=== PATIENT | male | born 1970 | race African-American/Black ===

== ENCOUNTER 2020-06-21 16:45 | Emergency (ER) | payer BC ==
--- OUTSIDE RECORDS SUMMARY | 2020-06-21 16:48 | XMS REPORT | Continuity of Care Document ---
:1970 Author Organization [facility] t Address [address] [place] [address] Care Team Providers Name Role Phone ISELA Attending Clinician Unavailable Torsten Monique Attending Clinician HELGA Attending Clinician Unavailable Problems Condition Condition Condition Status Onset Resolution Last Treating Co mments Source Name Details Category Date Date Treatment Clinician Date Morbid Problem Active 2019-02-02 Memor ia obesity 23:38:46 l (disorder) Morbid Herm santi obesity (disorder) Active Problem 02/02/2019 [facility] Group History of History of Problem Resolve [facility] Heart Heart d ity of problem problem [place] [facility] ans History of History of Problem Resolve [facility] hypertensi hypertensi d it y of on on [place] [facility] Rupture of Rupture of Problem Active U nivers left left ity of quadriceps quadriceps [place] tendon, tendon, Physici subsequent subsequent an s encounter encounter Left knee Left knee Problem Active Uni vers pain pain ity of [place] [facility] ans Arthritis Arthritis Problem Active Uni vers of left of left ity of knee due knee due [place] to other to other Physic i bacteria bacteria ans Allergies, Adverse Reactions, Alerts Allergy Allergy Status Severity Reaction(s) Onset Inactive Treating Comm ents Source Name Type Date Date Clinician No Known No Known Active Memori a Medicati Medicati l on on Jorge Bui s s Social History Smoking Status Start Date Stop Date Source Social History [facility] Medications Ordered Filled Start Stop Current Ordering Indication Dosage Frequency Signature Comments Components Source Medication Medication Date Date Medication? Clinician (SIG) Name Name [facility] Asp[facility] Asp[facility]in 2018-04 Yes IGNACIA TAKE 1 Univers Low Dose 81 Low Dose 81 0-29 ISELA TABLET BY ity of MG Oral MG Oral 00:00: M.D. MOUTH [place] Tablet Tablet 00 EVERY DAY Physic i Delayed Delayed ans Release Release Hydrochloro 2018-04 Yes 25 mg = 1 M emoria thiazide 25 0-10 tab, PO, l MG Oral 18:19: Daily, 0 Meliton n Tablet 00 Refill(s) lisinopril 2018-04 Yes 40 mg = 1 Me moria 40 mg oral 0-10 tab, PO, l tablet 18:19: Daily, 0 Jorge 00 Refill(s) NIFEdipine 2018-04 Yes 60 mg = 1 Me moria 60 mg oral 0-10 tab, PO, l tablet, 18:19: Daily Jorge extended 00 release cephalexin 2018-04 Yes 500 mg = 1 M emoria 500 mg oral 0-10 tab, PO, l tablet 16:52: QID, X 10 Meliton n 24 day, # 40 tab, 0 Refill(s), Pharmacy: [facility] #[id number] cephalexin 2018-04 No 500 mg = 1 M emoria 500 mg oral 0-10 tab, PO, l tablet 16:49: QID, X 10 Meliton n 00 day, # 40 tab, 0 Refill(s) Cyclobenzap Cyclobenzap 2018-04 Yes IGNACIA Q0.3333D TAKE 1 Univers rine HCl - rine HCl - 0-10 ISELA TABLET 3 ity of 10 MG Oral 10 MG Oral 00:00: M.D. TIMES [place] Tablet Tablet 00 DAILY. Physici ans Gabapentin Gabapentin 2018-04 Yes IGNACIA Q0.3333D TAKE 1 Univers 300 MG Oral 300 MG Oral 0-10 ISELA CAPSULE 3 ity of Capsule Capsule 00:00: M.D. TIMES [place] 00 DAILY. Physici ans Naproxen Naproxen 2018-04 Yes IGNACIA Q12H TAKE 1 Univers 500 MG Oral 500 MG Oral 0-10 ISELA TABLET ity of Tablet Tablet 00:00: M.D. EVERY 12 [place] 00 HOURS Physici DAILY. ans traMADol traMADol 2018-04 Yes IGNACIA TAKE 1 TO Univers HCl - 50 MG HCl - 50 MG 0-10 ISELA 2 TABLETS ity of Oral Tablet Oral Tablet 00:00: M.D. EVERY 4 TO [place] 00 6 HOURS Physici NEEDED FOR ans PAIN. Ondansetron Ondansetron 2018-04 Yes IGNACIA 1 Q12H TAKE 1 Univers HCl - 4 MG HCl - 4 MG 0-10 ISELA TABLET ity of Oral Tablet Oral Tablet 00:00: M.D. Every [place] 00 twelve Physici hours PRN ans nausea Aspirin 81 Aspirin 81 2018-04 Yes IGNACIA 1 QD TAKE 1 Univers 81 MG Oral 81 MG Oral 0-10 ISELA TABLET ity of Tablet Tablet 00:00: M.D. DAILY. [place] Delayed Delayed 00 Physici Release Release ans Aspirin 81 Aspirin 81 Yes IGNACIA 1 QD TAKE 1 Univers 81 MG Oral 81 MG Oral 5-17 ISELA TABLET ity of Tablet Tablet 00:00: M.D. DAILY. [place] Delayed Delayed 00 Physici Release Release ans Cyclobenzap Cyclobenzap Yes IGNACIA Q0.3333D TAKE 1 Univers rine HCl - rine HCl - 5-17 ISELA TABLET 3 ity of 10 MG Oral 10 MG Oral 00:00: M.D. TIMES [place] Tablet Tablet 00 DAILY. Physici ans Gabapentin Gabapentin Yes IGNACIA Q0.3333D TAKE 1 Univers 300 MG Oral 300 MG Oral 5-17 ISELA CAPSULE 3 ity of Capsule Capsule 00:00: M.D. TIMES [place] 00 DAILY. Physici ans Naproxen Naproxen Yes IGNACIA Q12H TAKE 1 Univers 500 MG Oral 500 MG Oral 5-17 ISELA TABLET ity of Tablet Tablet 00:00: M.D. EVERY 12 [place] 00 HOURS Physici DAILY. ans Ondansetron Ondansetron Yes IGNACIA 1 Q12H TAKE 1 Univers HCl - 4 MG HCl - 4 MG 5-17 ISELA TABLET ity of Oral Tablet Oral Tablet 00:00: M.D. Every [place] 00 twelve Physici hours PRN ans nausea Trezix Trezix Yes IGNACIA 2 Q6H TAKE 2 Univ ers 320.5-30-16 320.5-30-16 5-17 ISELA CAPSULE ity of MG Oral MG Oral 00:00: M.D. EVERY 6 [place] Capsule Capsule 00 HOURS Physici ans NIFEdipine NIFEdipine Yes Uni vers ER 60 MG ER 60 MG ity of Oral Tablet Oral Tablet [place] Extended Extended Physici Release 24 Release 24 ans Hour Hour hydroCHLORO hydroCHLORO Yes U nivers thiazide 25 thiazide 25 i ty of MG Oral MG Oral [place] Tablet Tablet Physici ans Lisinopril Lisinopril Yes Uni vers 40 MG Oral 40 MG Oral ity of Tablet Tablet [place] Phys[facility] ans Vital Signs Vital Name Observation Time Observation Value Comments Source Systolic (mm Hg) 2019-01-31 18:07:00 Tani kimberly Patel Diastolic (mm Hg) 2019-01-31 18:07:00 [facility] ry Patel Heart Rate 2019-01-31 18:07:00 [facility] Respitory Rate 2019-01-31 18:07:00 Earlene aiden Escalanteann Temperature Oral (F) 2019-01-31 18:07:00 97.9 F [facility] Height 2019-01-31 18:07:00 182.88 cm [facility] Weight 2019-01-31 18:07:00 [facility] BMI Calculated 2019-01-31 18:07:00 Earlene aiden Patel Height 2018-09-03 09:57:00 72 [in_us] [facility] Weight 2018-09-03 09:57:00 372 [lb_av] [facility] Physician s Body Mass Index 2018-09-03 09:57:00 50.45 kg/m2 Unive rsity of Calculated [place] Physician s Procedures Procedure Date / Time Performed Performing Clinician Sour e Physical Therapy 2019-02-14 00:00:00 [facility] Physicians Post Op Promis 2019-02-14 00:00:00 [facility] Survey Physicians [L] Gram Stain/Body 2019-01-31 00:00:00 [facility] Fluid Culture Physicians [QL] CELL COUNT AND 2019-01-31 00:00:00 [facility] DIFF, SYNOVIAL FLUID Physicians MR Femur wo contrast 2019-01-21 00:00:00 [facility] [id number] Physicians Post Op Promis 2018-09-27 00:00:00 [facility] Survey Physicians Physical Therapy 2018-09-12 00:00:00 [facility] Physicians [U] XRAY KNEE 3 VWS 2018-09-06 00:00:00 [facility] LEFT [id number] Physicians MR Knee wo contrast 2018-09-06 00:00:00 [facility] [id number] Physicians MR Knee wo contrast 2018-09-03 00:00:00 [facility] [id number] Physicians History of Inguinal [facility] o [facility] [place] hernia repair Physicians Plan of Care Planned Activity Planned Date Details Comments Source Diagnostic Test 2018-09-12 Physical Therapy [facility] Pending 00:00:00 [code = Physical Physicians Therapy] Encounters Start End Encounter Admission Attending Care Care Encounter Source Date/Time Date/Time Type Type Clinicians Facility Department ID 2018-09-07 Outpatient [facility] [id number] HH 12:47:16 2018-09-05 Outpatient [facility] [id number] NE 11:17:59 2019-03-28 2019-03-28 [facility] 5 [id number] Univers 10:45:00 10:45:00 t; Luis BETH M.D. [place] Mikel BETH M.D. ans 2019-02-28 2019-02-28 [facility] 5 [id number] Univers 11:15:00 11:15:00 t; Luis BETH M.D. [place] Mikel BETH M.D. ans 2019-02-14 2019-02-14 [facility] 5 [id number] Univers 10:30:00 10:30:00 t; Luis BETH M.D. [place] Mikel BETH M.D. ans 2019-02-07 2019-02-07 [facility] 5 [id number] Univers 09:45:00 09:45:00 t; Luis BETH M.D. [place] Mikel BETH M.D. ans 2019-02-01 2019-02-01 Y[facility]IR [facility] UTP [id number] Univers 15:00:00 15:00:00 t; tonny BETH M.D. [place] Mikel BETH M.D. ans 2019-02-01 2019-02-01 Outpatient [facility]Y [facility] [id number] MHCY 12:25:00 12:25:00 2019-01-31 2019-01-31 Outpatient Eneida, [facility] [id number] 10:30:00 23:59:59 Dipak 00 Torsten 2019-01-31 2019-01-31 [facility] 5 [id number] Univers 13:45:00 13:45:00 t; IGNACIA at [facility] amarjit WEISS M.D. [facility] Olesya BETH M.D. and Spine [facility] 2019-01-21 2019-01-21 [facility] 5 [id number] Univers 11:15:00 11:15:00 t; IGNACIA - Kurt Young M.D. [place] Mikel BETH M.D. ans 2018-12-04 2018-12-04 [facility] 5 [id number] Univers 11:15:00 11:15:00 t; IGNACIA - Kurt Young M.D. [place] Mikel BETH M.D. ans 2018-12-03 2018-12-03 YASIR Vega [facility] [id number] Univers 13:00:00 13:00:00 t; tonny BETH M.D. [place] Mikel BETH M.D. [facility] 2018-10-23 2018-10-23 [facility] 5 [id number] Univers 10:45:00 10:45:00 t; Luis BETH M.D. [place] Mikel BETH M.D. [facility] 2018-09-21 2018-09-21 YASIR Vega [facility] [id number] Univers 10:00:00 10:00:00 t; Kurt BETH M.D. [facility] Tonja BETH M.D. [facility] 2018-09-11 2018-09-11 YASIR Vega [facility] [id number] Univers 13:00:00 13:00:00 t; Kurt BETH M.D. [facility] Tonja BETH M.D. ans 2018-09-11 2018-09-11 Outpatient MHCY MHCY [id number] MHCY 11:10:00 11:10:00 2018-09-06 2018-09-06 YASIR Vega [facility] [id number] Univers 11:00:00 11:00:00 t; Kurt BETH M.D. [facility] Tonja BETH M.D. ans 2018-09-03 2018-09-03 Appointmen YASIR PARTIDA [facility] [id number] Univers 09:30:00 09:30:00 monster ROB M.D. Orthopedic [facility]y of [place]elyn PARTIDA - Leonor Park M.D. ans 2018-08-29 2018-08-29 Emergency E MHNE MHNE [id number] MHNE 13:14:00 13:14:00 Results Test Description Test Time Test Comments Results Result Comments Source [H] BF Cell Cnt w/Diff 2019-01-31 14:10:01 Test Item Value Reference Range Interpretation Comme nts CellCnt BF Type (test code = Synovial 80411-7) Color BF; Abnormal (test code = Red Colorless A 6824-7) Clarity BF (test code = Mucous 45976-6) WBC BF (test code = 6743-9) 29063 /mm3 No established reference range. RBC BF (test code = 6741-3) 96638 /mm3 No established reference range. Segs BF (test code = 12990-2) 97 % No established reference range. Lymph BF (test code = 49522-6) 2 % No established reference range. Macrophage Body Fluid (test 1 % No established reference range. code = 28345-0) [facility] Femur wo contrast [id number] 08:00:00EXAM: Femur wo contrast MRIINDICATION: - S76.112D Strain of left quadriceps muscle, fascia and tendon,subsequent encounterCOMPARISON: None.TECHNIQUE: Multiplanar, multisequence magnetic resonance imaging of the leftfemur was performed without the administration of intravenous gadoliniumcontrast.FIN DINGS: No acute bony fracture, joint dislocation, or stress-related marrowedema is seen.Postoperative changes of prior distal quadriceps tendon repair are seen withsuture anchors in the superior patella. There is a full-thickness tear of thecentral portion of the distal quadriceps tendon near the patellar attachmentwith the tendon gap measuring 1.7 cm transverse dimension and 2.7 cmcraniocaudal dimension. Large joint effusion and synovitis is seen, extrudingthrough the tendon gap and communicating with an overlying lobulated,heterogenous fluid collection in the anterior subcutaneous soft tissues ofthedistal thigh measuring 3.2 x 11.3 x 12.1 cm. Globular focus of ferromagneticsusceptibility artifact in the medial suprapatellar recess is seen, suspiciousfor a dislodged suture anchor.There is diffuse feathery hyperintense signal abnormality with overlyingperifascial edema in the distal quadriceps m usculature.IMPRESSION:1. Postoperative changes of prior distal quadriceps tendon repair with focalfull-thickness re-tear of the distal quadriceps tendon near the patellarattachment with the tendon gap measuring 1.7 cm transverse dimension and 2.7 cmcraniocaudal dimension.2. Dislodged suture anchor in the medial suprapatellar recess.3. Large joint effusion and synovitis, extruding through the tendon gap andcommunicating with an overlying lobulated 3.2 x 11.3 x 12.1 cm fluid collectionin the anterior subcutaneous soft tissues of the distal thigh.4. Mild feathery hyperintense signal abnormality throughout the distalquadriceps musculature which may be related to low-grade strain.SL: ARSENIO--Read by:Maximino Youssef MDDictated Date/time: 01/26/19 17:10Electronically Signed by: Raphael Youssef MD 01/26/1917:21FINAL REPORTUnLDS Hospital
--- NOTE | 2020-06-21 18:58 | ER ---
Nurse's Notes [facility] Name: Jorge Luis Moseley Age: 49 yrs Sex: Male : 1970 Arrival Date: 06/21/2020 Time: 16:51 Bed Waiting Private MD: Diagnosis: Presentation: 06/21 16:54 Chief complaint: Patient states: right sided pain started Monday and radiates to the sv right low back and RLQ, vomiting. Took pepto bismol on Mon and had black stools. Coronavirus screen: Client denies travel out of the [place] in the last 14 days. At this time, the client does not indicate any symptoms associated with coronavirus-19. Ebola Screen: No symptoms or risks identified at this time. Risk Assessment: Do you want to hurt yourself or someone else? Patient reports no desire to harm self or others. Onset of symptoms was June 15, 2020. 16:54 Method Of Arrival: Ambulatory sv 16:54 Acuity: VIVIEN 3 sv 16:56 Initial Sepsis Screen: Does the patient meet any 2 criteria? HR > 90 bpm. No. Patient's sv initial sepsis screen is negative. Does the patient have a suspected source of infection? No. Patient's initial sepsis screen is negative. Triage Assessment: 16:58 General: Appears in no apparent distress. comfortable, Behavior is calm, cooperative, sv appropriate for age. Pain: Complains of pain in anterior aspect of right lateral abdomen, posterior aspect of right lateral abdomen, right upper quadrant and right lower quadrant. Neuro: Level of Consciousness is awake, alert, obeys commands, Oriented to person, place, time, situation, Moves all extremities. Full function Gait is steady. Respiratory: Airway is patent Respiratory effort is even, unlabored. GI: Reports lower abdominal pain, upper abdominal pain. Historical: - Allergies: 16:56 No Known Allergies; sv - PMHx: 16:56 CHF; kidney failure; Hypertension; sv - Immunization history:: Adult Immunizations up to date. - Social history:: Smoking status: Patient denies any tobacco usage or history of. Assessment: 18:57 General: patient not around. . mg2 Vital Signs: 16:56 BP 142 / 97; Pulse 105; Resp 20; Temp 97.4(TE); Pulse Ox 99% on R/A; Weight 167.83 kg; sv Height 6 ft. 0 in. (182.88 cm); 16:56 Body Mass Index 50.18 (167.83 kg, 182.88 cm) sv ED Course: 16:51 Patient arrived in ED. mr 16:54 Arm band placed on. sv 16:55 Triage completed. sv 18:36 Rashaad Lunsford PA is PHCP. cp 18:36 Rashaad Heller MD is Attending Physician. cp Administered Medications: No medications were administered Outcome: 18:57 Patient left the ED. mg2 Signatures: Jailene Wei RN RN sv Rosa Garcia mr Rashaad Lunsford PA PA cp [place], Michele, RN RN mg2 Corrections: (The following items were deleted from the chart) 16:56 16:54 Chief complaint: Patient states: right sided pain started Monday and radiates to sv the right low back and RLQ, vomiting. sv 16:59 16:56 Pulse 105bpm; Resp 20bpm; Pulse Ox 99% RA; Temp 97.4F Temporal; 167.83 kg; Height sv 6 ft. 0 in.; BMI: 50.1; sv
[2020-06-21 21:10] VITALS: BP 142/97; TEMP 97.4; O2SAT 99
== END 2020-06-21 18:57 | disposition left against medical advice (07) ==
LOC: ER 16:45
DX: Z53.21 Procedure and treatment not carried out due to patient leaving prior to being seen by health care provider (principal)
CPT/HCPCS: 99281